=== PATIENT | female | born 1980 | race Caucasian/White ===

== ENCOUNTER 2017-12-25 14:05 | Emergency (ER) | payer OTHER ==
[~2017-12-25] VITALS: Ht 157.5 cm; Wt 70.0 kg
[2017-12-25 14:06] VITALS: Ht 157.5 cm; Wt 70.0 kg
[2017-12-25] MEDS ORDERED: SODIUM CHLORIDE 0.9% 1000ML 1,000 ML IV STA (14:30)
[2017-12-25 14:51] LABS: BASO % 0.1 %; BASO ABS # 0.02 K/uL (0-0.2); EOS % 0.1 %; EOS ABS # 0.02 K/uL (0-0.5); HEMATOCRIT 43.9 % (37-47); HEMOGLOBIN 15.4 g/dL (12.0-16.0); IG# 0.02 K/uL (0.00-0.02); LYMPH % 4.1 %; LYMPH ABS # 0.59 K/uL (1.2-3.4); MEAN CELL VOLUME 86.6 fL (80-100); MEAN CORPUSCULAR HEMOGLOBIN 30.4 pg (25-34); MEAN CORPUSCULAR HGB CONC 35.1 g/dl (32-36); MEAN PLATELET VOLUME 9.5 fL (7.4-10.4); MONO % 2.5 %; MONO ABS # 0.36 K/uL (0.11-0.59); NEUT % 93.1 %; PLATELET COUNT 310 K/uL (130-400); RED CELL DISTRIBUTION WIDTH CV 12.9 % (11.5-14.5); RED CELL DISTRIBUTION WIDTH SD 41.1 fL (36.4-46.3); WHITE BLOOD COUNT 14.31 K/uL (4.8-10.8)
[2017-12-25 15:08] LABS: ALBUMIN 4.6 gm/dl (3.4-5.0); CALCIUM 9.6 mg/dl (8.5-10.1); CREATININE 0.78 mg/dl (0.60-1.20); POTASSIUM 3.5 mmol/L (3.5-5.1)
[2017-12-25 15:11] LABS: TOTAL PROTEIN 8.7 gm/dl (6.4-8.2)
--- NOTE | 2017-12-25 15:33 | DIAGNOSTIC IMAGING REPORT ---
ABD/PELVIS NO IV OR ORAL CONT CLINICAL HISTORY: 37 years-old Female presenting with R FLANK/R ABDOMINAL PAIN, hematuria, history of UTI. TECHNIQUE: Multidetector CT of the abdomen and pelvis was performed without the use of intravenous contrast. IV contrast: None. A dose lowering technique was used consistent with the principles of ALARA (as low as reasonably achievable). COMPARISON: None. CT DOSE (mGy.cm): The estimated cumulative dose is 385.61 mGy.cm. FINDINGS: Bone Worker topogram: Unremarkable. Lung bases: Lungs and pleural spaces clear. Normal heart size. No pericardial or pleural effusion. Liver: Normal morphology. Normal density. Biliary: No gross biliary ductal dilatation allowing for noncontrast technique. Normal gallbladder. Pancreas: Normal noncontrast appearance. Spleen: Normal noncontrast appearance. Adrenal glands: Normal noncontrast appearance. Kidneys and ureters: Normal noncontrast appearance. No nephrolithiasis. Mild right pelviectasis and dilatation of the right ureter. An obstructing 2 mm calculus is located at the right ureterovesical junction. Bladder: Incompletely evaluated secondary to underdistention. Pelvic organs: Uterus contains an intrauterine device. Otherwise normal noncontrast appearance of the uterus and ovaries. Bowel: Normal appendix. No bowel obstruction. Peritoneal cavity: No free fluid or intraperitoneal gas. Lymph nodes: No gross lymphadenopathy allowing for noncontrast technique. Vasculature: Normal noncontrast appearance. Abdominal wall: Small fat-containing umbilical hernia. Musculoskeletal: Normal. IMPRESSION: 1. Obstructing 2 mm calculus at the right ureterovesical junction with resultant mild right hydroureteronephrosis. Electronically signed by: Kar Choudhury M.D. 12/25/2017 3:32 PM Dictated Date/Time: 12/25/2017 3:28 PM
[2017-12-25 16:32] VITALS: BP 118/77; PULSE 67; TEMP 36.9; O2SAT 98
--- NOTE | 2017-12-25 17:00 | EMERGENCY ROOM VISIT NOTE ---
History First contact with patient: 14:12 Chief Complaint: ABDOMINAL PAIN Stated Complaint: ABDOMINAL PAIN Nursing Triage Summary: Pt sent from urgent care for eval of right flank and right sided abd pain. States urgent care did a x-ray for kidney stones, neg. States pain started last night. Pt states, "I noticed that when I passed gas it relieved it. I did throw up this morning, but I did finally feel good enough to get dressed and get checked. I only have a little bit of urine and no stool. I do have a hx of UTI' s and they said there is blood in my urine. They said there is a lot of stool in my x-ray. I do have hemorrhoids because I do get blood in my stool. The pain was a 10, but now it's a 2. I'm just afraid it's going to start again." + Nausea. States last normal BM was yesterday. History of Present Illness The patient is a 37 year old female who presents to the Emergency Room with complaints of intermittent right flank pain since yesterday afternoon. The patient reports that when the pain started, it came on rather quickly and then started to fade away. By 6 PM, the pain came back and was much worse. The patient had nausea without vomiting at that time. The patient thought that she had to have a bowel movement. After passing gas, she reported that she felt better. Within approximately an hour, the pain started to come back again. The patient reports that when she awoke this morning, she felt fine, but then within an hour, the pain came back even worse than yesterday. Nausea persisted. The patient reports that she then got into her vehicle and drove to [facility], which was closed. She then went to the [facility] urgent care center, where an x-ray was performed that showed constipation. Urinalysis showed hematuria. She was then sent to the emergency department for further evaluation. The patient reports that she is currently spotting with menstruation. She has had an IUD in place for 2 years. The patient has also had prior UTIs, but reports that this feels different. She has not had any increased urinary frequency, urgency or dysuria. The patient reports that she has had intermittent bright red blood in her stool for the past 4 months, but has not followed up with her family doctor or senior data architect for further evaluation. She denies any recent rectal pain. At the time of my evaluation, she rated her discomfort a 2 out of 10. Review of Systems HEENT: Denies dizziness, visual problems, hearing loss, tinnitus. Denies difficulty swallowing or oral lesions. PULMONARY: Denies cough, shortness of breath, sputum production or hemoptysis. CARDIOVASCULAR: Denies chest pain, palpitations, dyspnea on exertion, orthopnea or peripheral edema. GASTROINTESTINAL: Other than nausea, the patient denies any recent problems with diarrhea, constipation or abdominal pain. GENITOURINARY: Denies dysuria, frequency, urgency or nocturia. NEUROLOGIC: Denies history of epilepsy, CVA, TIA or chronic headaches. MUSCULOSKELETAL: Denies history of joint tenderness/swelling. SKIN: Denies rashes or lesions. PSYCHIATRIC: Denies history of depression or mental illness. ENDOCRINE: Denies history of diabetes or thyroid disorders. Past Medical/Surgical History Medical Problems: (1) Urinary tract infection Surgical Problems: (1) History of wisdom tooth extraction Family History FH: diabetes mellitus FH: heart disease FH: hypertension FH: kidney disease FH: seizures Social History Smoking Status: Never Smoker Alcohol Use: occasionally Marital Status: single Occupation Status: employed Current/Historical Medications No Active Prescriptions or Reported Meds Physical Exam Vital Signs Date Time Temp Pulse Resp B/P (MAP) Pulse Ox O2 Delivery O2 Flow Rate FiO2 12/25/17 16:32 36.9 67 18 118/77 98 12/25/17 16:15 67 18 118/77 98 Room Air 12/25/17 15:15 67 18 118/78 98 Room Air 12/25/17 14:06 36.9 70 18 114/79 96 Room Air Physical Exam CONSTITUTIONAL: Healthy and well nourished. Alert and oriented X 3 with positive affect. Patient does not appear in any acute distress on exam. HEENT: Normocephalic, atraumatic. Pupils equal, round and reactive. No scleral icterus or conjunctival injection/pallor. NECK: Full active range of motion without discomfort. No JVD or carotid bruits. RESPIRATORY: Clear to auscultation bilaterally with no wheezing, crackles, rhonchi or stridor. CARDIOVASCULAR: Regular rate and rhythm with no murmurs, rubs or gallops. GASTROINTESTINAL: Bowel sounds present in all quadrants. Examination does not show any significant focal findings. She has a mildly positive right CVA tenderness. Negative McBurney's point tenderness. Negative Frank sign. No abdominal rigidity, guarding or rebound. Negative Rovsing sign. Negative heel tap. Negative psoas/obturator sign. MUSCULOSKELETAL: Full range of motion of all joints without discomfort. No tenderness to palpation through the thoracolumbar spinous muscles or central spine. INTEGUMENTARY: No rash or other significant dermatologic conditions noted. HEMATOLOGIC: No ecchymosis or petechiae noted. NEUROLOGIC: No focal neurologic deficits noted. Medical Decision & Procedures ER Provider Diagnostic Interpretation: Noncontrast CT of the abdomen and pelvis confirms a 2 mm distal right ureteral calculus with mild hydronephrosis. Radiologist report is as follows: ABD/PELVIS NO IV OR ORAL CONT CLINICAL HISTORY: 37 years-old Female presenting with R FLANK/R ABDOMINAL PAIN, hematuria, history of UTI. TECHNIQUE: Multidetector CT of the abdomen and pelvis was performed without the use of intravenous contrast. IV contrast: None. A dose lowering technique was used consistent with the principles of ALARA (as low as reasonably achievable). COMPARISON: None. CT DOSE (mGy.cm): The estimated cumulative dose is 385.61 mGy.cm. FINDINGS: Dry Pan Charger topogram: Unremarkable. Lung bases: Lungs and pleural spaces clear. Normal heart size. No pericardial or pleural effusion. Liver: Normal morphology. Normal density. Biliary: No gross biliary ductal dilatation allowing for noncontrast technique. Normal gallbladder. Pancreas: Normal noncontrast appearance. Spleen: Normal noncontrast appearance. Adrenal glands: Normal noncontrast appearance. Kidneys and ureters: Normal noncontrast appearance. No nephrolithiasis. Mild right pelviectasis and dilatation of the right ureter. An obstructing 2 mm calculus is located at the right ureterovesical junction. Bladder: Incompletely evaluated secondary to underdistention. Pelvic organs: Uterus contains an intrauterine device. Otherwise normal noncontrast appearance of the uterus and ovaries. Bowel: Normal appendix. No bowel obstruction. Peritoneal cavity: No free fluid or intraperitoneal gas. Lymph nodes: No gross lymphadenopathy allowing for noncontrast technique. Vasculature: Normal noncontrast appearance. Abdominal wall: Small fat-containing umbilical hernia. Musculoskeletal: Normal. IMPRESSION: 1. Obstructing 2 mm calculus at the right ureterovesical junction with resultant mild right hydroureteronephrosis. Laboratory Results 12/25/17 14:40 Red Blood Count 5.07, Mean Corpuscular Volume 86.6, Mean Corpuscular Hemoglobin 30.4, Mean Corpuscular Hemoglobin Concent 35.1, Mean Platelet Volume 9.5, Neutrophils (%) (Auto) 93.1, Lymphocytes (%) (Auto) 4.1, Monocytes (%) (Auto) 2.5, Eosinophils (%) (Auto) 0.1, Basophils (%) (Auto) 0.1, Neutrophils # (Auto) 13.30, Lymphocytes # (Auto) 0.59, Monocytes # (Auto) 0.36, Eosinophils # (Auto) 0.02, Basophils # (Auto) 0.02 12/25/17 14:40 Test 12/25/17 00:00 12/25/17 14:40 Urine Color YELLOW Urine Appearance CLEAR (CLEAR) Urine pH 6.0 (4.5-7.5) Urine Specific [place] 1.011 (1.000-1.030) Urine Protein NEG (NEG) Urine Glucose (UA) NEG (NEG) Urine Ketones 1+ (NEG) Urine Occult Blood 3+ (NEG) Urine Nitrite NEG (NEG) Urine Bilirubin NEG (NEG) Urine Urobilinogen NEG (NEG) Urine Leukocyte Esterase TRACE (NEG) Urine WBC (Auto) 5-10 /hpf (0-5) Urine RBC (Auto) 5-10 /hpf (0-4) Urine Hyaline Casts (Auto) 0 /lpf (0-5) Urine Epithelial Cells (Auto) >30 /lpf (0-5) Urine Bacteria (Auto) 1+ (NEG) Urine Mucus PRESENT (NONE PRSENT) White Blood Count 14.31 K/uL (4.8-10.8) Red Blood Count 5.07 M/uL (4.2-5.4) Hemoglobin 15.4 g/dL (12.0-16.0) Hematocrit 43.9 % (37-47) Mean Corpuscular Volume 86.6 fL (80-100) Mean Corpuscular Hemoglobin 30.4 pg (25-34) Mean Corpuscular Hemoglobin Concent 35.1 g/dl (32-36) Platelet Count 310 K/uL (130-400) Mean Platelet Volume 9.5 fL (7.4-10.4) Neutrophils (%) (Auto) 93.1 % Lymphocytes (%) (Auto) 4.1 % Monocytes (%) (Auto) 2.5 % Eosinophils (%) (Auto) 0.1 % Basophils (%) (Auto) 0.1 % Neutrophils # (Auto) 13.30 K/uL (1.4-6.5) Lymphocytes # (Auto) 0.59 K/uL (1.2-3.4) Monocytes # (Auto) 0.36 K/uL (0.11-0.59) Eosinophils # (Auto) 0.02 K/uL (0-0.5) Basophils # (Auto) 0.02 K/uL (0-0.2) RDW Standard Deviation 41.1 fL (36.4-46.3) RDW Coefficient of Variation 12.9 % (11.5-14.5) Immature Granulocyte % (Auto) 0.1 % Immature Granulocyte # (Auto) 0.02 K/uL (0.00-0.02) Anion Gap 6.0 mmol/L (3-11) Est Creatinine Clear Calc Drug Dose 92.3 ml/min Estimated GFR () 114.2 Estimated GFR (Non- 98.5 BUN/Creatinine Ratio 11.6 (10-20) Calcium Level 9.6 mg/dl (8.5-10.1) Total Bilirubin 0.7 mg/dl (0.2-1) Direct Bilirubin 0.2 mg/dl (0-0.2) Aspartate Amino Transf (AST/SGOT) 11 U/L (15-37) Alanine Aminotransferase (ALT/SGPT) 19 U/L (12-78) Alkaline Phosphatase 94 U/L (45-117) Total Protein 8.7 gm/dl (6.4-8.2) Albumin 4.6 gm/dl (3.4-5.0) Lipase 121 U/L (73-393) The above labs were reviewed, showing a white count of over 14,000. Partial renal profile, LFTs and lipase are normal. Urinalysis shows a contaminated sample without obvious infection. Urine cultures are pending. Medications Administered Medications (Trade) Dose Ordered Sig/Jacob Route Start Time Stop Time Status Last Admin Dose Admin Sodium Chloride 1,000 ml @ 999 mls/hr Q1H1M STAT IV 12/25/17 14:30 12/25/17 15:30 DC 12/25/17 15:13 999 MLS/HR ED Course Patient history and physical exam were performed. Nurse's notes were reviewed. Vital signs were reviewed and were normal. I also reviewed documentation from the [facility] urgent care [place], including a urine dip that showed hematuria, and no nitrites or leukocyte esterase. The patient also had a KUB x- ray performed that showed moderate fecal load. No obvious obstructive pattern appreciated. No obvious radiopaque ureteral calculi appreciated. IV access was established, and labs were drawn. The patient was hydrated with a liter of normal saline. She refused any analgesics or antiemetics on initial exam. Review of labs shows a mild leukocytosis. Partial renal profile, LFTs and lipase are normal. Urinalysis shows a contaminated sample without obvious infection. Urine cultures are pending. Noncontrast CT of the abdomen and pelvis shows a 2 mm distal right ureteral calculus with mild hydronephrosis. On final reevaluation, the patient denied any discomfort or nausea. The patient was advised of her CT findings. She was encouraged to increase fluid intake. The patient refused any prescription analgesics or antiemetics. She was encouraged to take ibuprofen or Tylenol as needed for pain. The patient was provided a urine filter. She was instructed to return to the emergency department for any uncontrollable pain, vomiting or fever. The patient was happy with plan of care, and voiced understanding of all discharge instructions. Medical Decision Clinical history, examination and CT findings are consistent with symptoms most consistent with renal colic secondary to a 2 mm distal right ureteral calculus. Laboratory studies are not suggestive of UTI, pancreatitis, hepatitis or cholecystitis. Clinical exam is not suggestive of appendicitis, pyelonephritis , peritonitis, diverticulitis or other acute abdomen. Medication Reconcilliation Current Medication List: was personally reviewed by ma Blood Pressure Screening Patient's blood pressure: Normal blood pressure Impression Primary Impression: Right ureteral calculus Departure Information Prescriptions No Active Prescriptions or Reported Meds Referrals No Doctor, Assigned (PCP) Patient Instructions My [facility]
== END 2017-12-25 16:33 | disposition home or self-care (01) ==
LOC: C.EDB 14:06
DX: N13.2 Hydronephrosis with renal and ureteral calculous obstruction (principal); Z87.440 Personal history of urinary (tract) infections; Z97.5 Presence of (intrauterine) contraceptive device; Z83.3 Family history of diabetes mellitus; Z82.49 Family history of ischemic heart disease and other diseases of the circulatory system; Z84.1 Family history of disorders of kidney and ureter; Z82.0 Family history of epilepsy and other diseases of the nervous system